=== PATIENT | male | born 1945 | race Caucasian/White ===

== ENCOUNTER 2020-03-28 13:41 | Emergency (ER) | payer OTHER ==
[~2020-03-28] VITALS: Ht 167.6 cm; Wt 72.1 kg
[~2020-03-28 13:41] MED LIST: ASA81 MG; CRESTOR10 MG; FENOFIBRATE200 MG; GLUCOTROL10 MG; HYZAAR 100-251 UDTAB; NORVASC10 MG; OMEGA-31000 MG; SYNTHROID137 MCG; VITAMIN C500 MG PO; ZETIA10 MG
[2020-03-28] MEDS ORDERED: PLAVIX75 MG (14:37)
== END 2020-03-31 23:53 | disposition expired ==
LOC: ER 13:41
DX: C94.80 Other specified leukemias not having achieved remission (principal); D63.8 Anemia in other chronic diseases classified elsewhere; I10 Essential (primary) hypertension; E11.9 Type 2 diabetes mellitus without complications; D72.828 Other elevated white blood cell count; R41.0 Disorientation, unspecified; F41.8 Other specified anxiety disorders; R05 Cough; R06.02 Shortness of breath; Z03.818 Encounter for observation for suspected exposure to other biological agents ruled out